=== PATIENT | male | born 1985 | race Caucasian/White ===

== ENCOUNTER 2024-09-08 19:53 | Inpatient (IN) ==
[2024-09-08 21:06] LABS: ABS Basophils 0.1 10^3/uL (0.0-0.1); ABS Lymphocytes 1.5 10^3/uL (1.0-4.8); ABS Monocytes 1.1 10^3/uL (0.0-1.1); ABS Neutrophils 11.2 10^3/uL (1.5-7.6); Hematocrit 39.9 % (38-53); Hemoglobin 13.8 g/dL (13.2-16.3); Lymphocyte % 10.6 %; Mean Corpuscular Hemoglobin 32.3 pg (27-33); Mean Corpuscular Hgb Conc 34.6 g/dL (31-36); Mean Corpuscular Volume 93.4 fL (80-97); Mean Platelet Volume 6.6 fL (7.5-11.2); Platelet Count 289 10^3/uL (150-450); Red Blood Count 4.28 10^6/uL (4.06-5.63); Red Cell Distribution Width 13.1 % (12-17); White Blood Count 13.9 10^3/uL (3.6-10.2)
[2024-09-08 21:08] LABS: INR 1.16 (0.85-1.14)
[2024-09-08 21:59] LABS: Albumin/Globulin Ratio 1.6 (1-3); C Reactive Protein 160.9 mg/L (<8.01); Calcium 8.7 mg/dL (8.6-10.3); Creatinine, Serum 0.94 mg/dL (0.67-1.17); Globulin 2.5 g/dL (2-4); Potassium 3.9 mmol/L (3.5-5.0); Total Bilirubin 0.7 mg/dL (0.2-1.0); Total Protein 6.5 g/dL (6.4-8.9); eGFR CKD-EPI 104.4 (>60)
[2024-09-08 22:06] LABS: Body Fluid Appearance Cloudy; Body Fluid Color Yellow; Body Fluid Source Synovial Fluid
[2024-09-08] MEDS: Acetaminophen IV 1 GM/100ML 1,000 MG/100 ML BAG IV ONE (22:16)
[2024-09-08 22:42] LABS: Erythrocyte Sed Rate 36 mm/Hr (0-14)
[2024-09-08 23:58] LABS: Body Fluid Mono 4 %; Body Fluid Total Cells Counted 200
[2024-09-09 00:01] LABS: Body Fluid Total Nucleated 117658 /mcL
[2024-09-09] MEDS: cefTRIAXone 2 gm/50 mL D5W 2 GM/50 ML BAG IV ONE (01:11)
[2024-09-09] MEDS: Vancomycin 1,500 MG in NS 0.9% 250 ml 250 ML IVPB ONE ×2 (02:24→16:10)
[2024-09-09] MEDS ORDERED: Lidocaine 2% PF 5 ML VIAL ONE (03:17)
[2024-09-09] MEDS ORDERED: Propofol 10 MG/ML 20 ML BTL ONE (03:17)
[2024-09-09] MEDS ORDERED: Dexamethasone IV 4 MG/ML VIAL 1 ml VIAL ONE (03:55)
[2024-09-09] MEDS ORDERED: Ondansetron 4 mg VIAL 2 MG/ML 2 ml VIAL ONE ×2 (03:55→07:17)
[2024-09-09] MEDS ORDERED: Midazolam 2 mg/2 ml VIAL 1 mg/ml 2 ml VIAL (2 mg) ONE (04:32)
[2024-09-09] MEDS ORDERED: fentaNYL 100 mcg/2 ml 50 MCG/ML VIAL ONE ×2 (04:32→06:35)
[2024-09-09] MEDS ORDERED: Bupivacaine 0.5% SDV PF 30ML VIAL ONE (04:48)
[2024-09-09] MEDS ORDERED: Bupivacaine 0.25% SDV 30 ML ONE (04:48)
[2024-09-09] MEDS ORDERED: Ondansetron 4 mg VIAL 2 MG/ML 2 ml VIAL IV PRN (05:58)
[2024-09-09] MEDS ORDERED: Phenylephrine 40 mcg/mL 10mL (400mcg) SYRINGE ONE (06:34)
[2024-09-09] MEDS ORDERED: Cefepime ADVAN 1 GM in NS 0.9% 50 ML 50 ML IVPB SCH (07:00)
[2024-09-09] MEDS ORDERED: Vancomycin per Pharmacy 1 EA NOTE FOLLOW UP SCH (07:00)
[2024-09-09] MEDS: Lactated Ringers 1000 ml BAG 1,000 ML IV SCH (08:41)
[2024-09-09 09:31] LABS: ABS Lymphocytes 0.9 10^3/uL (1.0-4.8); ABS Monocytes 0.9 10^3/uL (0.0-1.1); ABS Neutrophils 8.8 10^3/uL (1.5-7.6); Eosinophil % 0.1 %; Hematocrit 36.8 % (38-53); Hemoglobin 12.6 g/dL (13.2-16.3); Lymphocyte % 8.1 %; Mean Corpuscular Hgb Conc 34.1 g/dL (31-36); Mean Corpuscular Volume 93.9 fL (80-97); Mean Platelet Volume 6.7 fL (7.5-11.2); Platelet Count 240 10^3/uL (150-450); Red Blood Count 3.92 10^6/uL (4.06-5.63); Red Cell Distribution Width 13.3 % (12-17); White Blood Count 10.6 10^3/uL (3.6-10.2)
[2024-09-09] MEDS: Enoxaparin 40 MG/0.4 ML SYR SUBCUT SCH (10:00)
[2024-09-09] MEDS: Cefepime 1 GM in Dextrose 1 GM/50 ML BAG IV SCH (10:00)
[2024-09-09] MEDS ORDERED: Vancomycin per Pharmacy 1 EA NOTE FOLLOW UP PRN (15:37)
[2024-09-10] MEDS: Vancomycin 1,250 MG in NS 0.9% 250 ml 250 ML IVPB SCH (04:07)
[2024-09-10] MEDS: Vancomycin Trough Check NOTE FOLLOW UP ONE (21:12)
[2024-09-11 10:02] LABS: ABS Eosinophils 0.2 10^3/uL (0.0-0.5); ABS Lymphocytes 1.2 10^3/uL (1.0-4.8); ABS Monocytes 0.7 10^3/uL (0.0-1.1); ABS Neutrophils 6.3 10^3/uL (1.5-7.6); Eosinophil % 1.8 %; Hematocrit 37.1 % (38-53); Hemoglobin 12.9 g/dL (13.2-16.3); Lymphocyte % 14.6 %; Mean Corpuscular Hemoglobin 32.6 pg (27-33); Mean Corpuscular Hgb Conc 34.9 g/dL (31-36); Mean Corpuscular Volume 93.4 fL (80-97); Mean Platelet Volume 6.6 fL (7.5-11.2); Platelet Count 334 10^3/uL (150-450); Red Blood Count 3.97 10^6/uL (4.06-5.63); White Blood Count 8.3 10^3/uL (3.6-10.2)
[2024-09-11 10:15] LABS: Albumin 3.6 g/dL (3.5-5.7); Albumin/Globulin Ratio 1.4 (1-3); C Reactive Protein 131.1 mg/L (<8.01); Calcium 8.8 mg/dL (8.6-10.3); Creatinine, Serum 0.68 mg/dL (0.67-1.17); Globulin 2.6 g/dL (2-4); Total Bilirubin 0.6 mg/dL (0.2-1.0); Total Protein 6.2 g/dL (6.4-8.9); eGFR CKD-EPI 119.8 (>60)
[2024-09-11 10:50] LABS: Glucose, BF 3 mg/dL; Total Protein, BF 5.7 g/dL
[2024-09-12 09:16] LABS: Hematocrit 36.4 % (38-53); Hemoglobin 12.9 g/dL (13.2-16.3); Mean Corpuscular Hemoglobin 32.7 pg (27-33); Mean Corpuscular Hgb Conc 35.4 g/dL (31-36); Mean Corpuscular Volume 92.5 fL (80-97); Mean Platelet Volume 6.1 fL (7.5-11.2); Platelet Count 347 10^3/uL (150-450); Red Blood Count 3.93 10^6/uL (4.06-5.63); Red Cell Distribution Width 12.9 % (12-17); White Blood Count 8.6 10^3/uL (3.6-10.2)
[2024-09-12 10:09] LABS: ABS Basophils 0.1 10^3/uL (0.0-0.1); ABS Eosinophils 0.2 10^3/uL (0.0-0.5); ABS Lymphocytes 1.3 10^3/uL (1.0-4.8); ABS Monocytes 0.8 10^3/uL (0.0-1.1); ABS Neutrophils 6.2 10^3/uL (1.5-7.6); Eosinophil % 2.7 %; Lymphocyte % 15.3 %; RBC Morphology Normal (Normal)
[2024-09-12 12:34] LABS: Creatinine, Serum 0.71 mg/dL (0.67-1.17); Vancomycin Trough 8.1 mcg/mL; eGFR CKD-EPI 118.2 (>60)
[2024-09-12 14:50] VITALS: BP 137/86
[2024-09-12] MEDS: Vancomycin Trough Check NOTE FOLLOW UP ONE (15:38)
[2024-09-12] MEDS: cefTRIAXone 2 gm/50 mL D5W 2 GM/50 ML BAG IV SCH (15:38)
[2024-09-12] MEDS ORDERED: cefTRIAXone 2 gm/50 mL D5W 2 GM/50 ML BAG IV SCH (21:00)
[2024-09-15 11:23] LABS: IgG Immunoblot Positive
[2024-09-15 11:24] LABS: IgM Immunoblot Negative
== END 2024-09-12 16:31 | disposition home or self-care (01) | DRG 487 ==
LOC: ED 19:53 → OR 09-09 04:57 → SSU 09-09 04:57 → MEDTELE 09-09 04:57 → SUATTDRO 09-09 08:05 → MEDTELE 09-09 09:43
PROVIDERS: ADMIT Emergency Medicine; ATTEND Orthopaedic Surgery Hand Surgery